=== PATIENT | female | born 1945 | race Caucasian/White ===

== ENCOUNTER → 2023-07-29 | Day surgery (SDC) | payer MEDICARE ==
[2023-07-27 10:18] LABS: BILIRUBIN,URINE NEGATIVE (Neg); CLARITY,URINE CLOUDY (Clear); COLOR,URINE YELLOW (Yellow); GLUCOSE, URINE NEGATIVE (Neg); KETONES,URINE TRACE mg/dl (Neg); LEUKOCYTE ESTERASE ,URINE TRACE (Neg); NITRITES, URINE POSITIVE (Neg); OCCULT BLOOD,URINE NEGATIVE (Neg); PH,URINE 5.5 (4.8-8.0); PROTEIN,URINE NEGATIVE (Neg); UROBILINOGEN,URINE 0.2 E.U/dL (0.2-1.0)
[2023-07-27 10:22] LABS: BASOPHILS % (AUTO) 0.3 % (0-1); EOSINOPHILS # (AUTO) 0.1 X10'3 (0-0.9); EOSINOPHILS % (AUTO) 1.4 % (0-6); LYMPHOCYTES # (AUTO) 1.4 X10'3 (1.1-4.8); LYMPHOCYTES % (AUTO) 19.2 % (21-51); MEAN CORPUSCULAR HEMOGLOBIN 34.7 PG (27.0-31.0); MEAN CORPUSCULAR HGB CONC 33.7 g/dL (33.0-36.5); MONOCYTES # (AUTO) 0.7 X10'3 (0-0.9); NEUTROPHILS # (AUTO) 4.9 X10'3 (1.8-7.7); NEUTROPHILS % (AUTO) 69.1 % (42-75); PRE OP HEMATOCRIT 38.4 % (35.0-45.0); PRE OP HEMOGLOBIN 12.9 g/dL (12.0-16.0); PRE OP PLATELET COUNT 336 X10'3 (140-440); PRE OP WHITE BLOOD COUNT 7.1 10'3 (4.8-10.8); RED BLOOD COUNT 3.72 X10'6 (4.20-5.60); RED CELL DISTRIBUTION WIDTH 14.2 % (11.5-14.5)
[2023-07-27 10:26] LABS: UA COLLECTION TYPE CLN CATCH MIDSTREAM
[2023-07-27 10:27] LABS: BACTERIA,URINE 4+ /HPF (Neg); MUCUS STRANDS FEW /LPF (Neg); SQUAMOUS EPITHELIAL CELL,UR FEW /LPF (FEW); WBC,URINE 30-50 /HPF (0-4)
[2023-07-27 10:28] LABS: TRANSITIONAL EPI CELLS,URINE FEW /HPF
[2023-07-27 11:04] LABS: ALBUMIN 3.4 G/DL (3.4-5.0); ALKALINE PHOSPHATASE 40 IU/L (46-116); BLOOD UREA NITROGEN 18 MG/DL (7-18); BUN/CREATININE RATIO 29.5 (10.0-20.0); CALCIUM 8.6 MG/DL (8.5-10.1); CHLORIDE 102 MMOL/L (99-107); CREATININE 0.61 MG/DL (0.40-0.90); PRE OP ALT 35 U/L (30-65); PRE OP ANION GAP 5 (8-16); PRE OP AST 21 U/L (10-37); PRE OP BILIRUB, TOTAL 0.4 MG/DL (0.0-1.0); PRE OP GLUCOSE 105 MG/DL (70-104); PRE OP SODIUM 137 MMOL/L (135-145); TOTAL CARBON DIOXIDE 30.3 MMOL/L (24-32); TOTAL PROTEIN 6.7 G/DL (6.4-8.2); eGFR > 90 ML/MIN
[~2023-07-29] VITALS: Ht 167.6 cm; Wt 63.5 kg
[~2023-07-29] MED LIST: ACET-1025 PO; ALBU90AE INH; B12; BIOT5TAB PO; BUPIVAcaine/PF 2.5mg/ml (0.25%) 10ml vial ONE; CALCIUM; CETI10CA PO; DENO60DI SUBCUT; FLUT15.87 NS; FOLI1TAB27 PO; GLUCOSAMINE/CHON; IRON; MAG; METH2.5T55 PO; MULT-1085 PO; OLOP5DRO24 EACHEYE; OMEG-166 PO; PRED2.5T4 PO; PREVCR VG; TURMERIC; VIT D3; VITC500T PO; ZINC; [UNRECOGNIZED DRUG - OTHER]; albuterol 2.5 MG/3 ML nebule NEB ONE; bacitracin 15gm ointment TP ONE; cefazolin 2gm/D5W 100mL 100 ML IV ONE; famotidine 20mg tablet PO ONE; ringers solution, lacted 1,000 ML IV SCH
== END | disposition home or self-care (01) ==
LOC: PAS 07:52
PROVIDERS: ATTEND Podiatrist Foot & Ankle Surgery
DX: M20.42 Other hammer toe(s) (acquired), left foot (principal); M19.072 Primary osteoarthritis, left ankle and foot; N39.0 Urinary tract infection, site not specified; Z53.8 Procedure and treatment not carried out for other reasons; Z86.73 Personal history of transient ischemic attack (TIA), and cerebral infarction without residual deficits; Z79.82 Long term (current) use of aspirin; Z79.891 Long term (current) use of opiate analgesic; Z79.899 Other long term (current) drug therapy; Z90.49 Acquired absence of other specified parts of digestive tract; Z90.710 Acquired absence of both cervix and uterus; Z90.89 Acquired absence of other organs; Z96.643 Presence of artificial hip joint, bilateral; Z96.653 Presence of artificial knee joint, bilateral; Z98.890 Other specified postprocedural states
CPT/HCPCS: 36415; 80053; 81001; 85025; 87077; 87088; 87186; 93005; J7120; J0690; J3490

== ENCOUNTER 2023-09-09 05:44 | Day surgery (SDC) | payer MEDICARE ==
[2023-09-06 15:16] LABS: BASOPHILS # (AUTO) 0.1 X10'3 (0-0.2); BASOPHILS % (AUTO) 0.8 % (0-1); BILIRUBIN,URINE NEGATIVE (Neg); CLARITY,URINE CLEAR (Clear); COLOR,URINE YELLOW (Yellow); EOSINOPHILS % (AUTO) 0.5 % (0-6); GLUCOSE, URINE NEGATIVE (Neg); KETONES,URINE NEGATIVE (Neg); LEUKOCYTE ESTERASE ,URINE NEGATIVE (Neg); LYMPHOCYTES # (AUTO) 1.9 X10'3 (1.1-4.8); MEAN CORPUSCULAR HEMOGLOBIN 34.5 PG (27.0-31.0); MEAN CORPUSCULAR HGB CONC 33.7 g/dL (33.0-36.5); MEAN CORPUSCULAR VOLUME 102.4 FL (78-98); MEAN PLATELET VOLUME 7.1 FL (7.4-10.4); MONOCYTES # (AUTO) 0.9 X10'3 (0-0.9); MONOCYTES % (AUTO) 10.3 % (2-12); NEUTROPHILS # (AUTO) 5.5 X10'3 (1.8-7.7); NEUTROPHILS % (AUTO) 65.4 % (42-75); NITRITES, URINE NEGATIVE (Neg); OCCULT BLOOD,URINE NEGATIVE (Neg); PH,URINE 7.5 (4.8-8.0); PRE OP HEMATOCRIT 39.9 % (35.0-45.0); PRE OP HEMOGLOBIN 13.4 g/dL (12.0-16.0); PRE OP PLATELET COUNT 447 X10'3 (140-440); PRE OP WHITE BLOOD COUNT 8.4 10'3 (4.8-10.8); PROTEIN,URINE NEGATIVE (Neg); RED BLOOD COUNT 3.89 X10'6 (4.20-5.60); RED CELL DISTRIBUTION WIDTH 12.8 % (11.5-14.5); UROBILINOGEN,URINE 0.2 E.U/dL (0.2-1.0)
[2023-09-06 15:23] LABS: UA COLLECTION TYPE CLN CATCH MIDSTREAM
[2023-09-06 16:09] LABS: ALBUMIN 3.7 G/DL (3.4-5.0); ALBUMIN/GLOBULIN RATIO 1.1 (1.1-1.5); ALKALINE PHOSPHATASE 45 IU/L (46-116); BLOOD UREA NITROGEN 14 MG/DL (7-18); BUN/CREATININE RATIO 34.1 (10.0-20.0); CALCIUM 9.3 MG/DL (8.5-10.1); CHLORIDE 100 MMOL/L (99-107); CREATININE 0.41 MG/DL (0.40-0.90); PRE OP ALT 49 U/L (30-65); PRE OP ANION GAP 8 (8-16); PRE OP AST 26 U/L (10-37); PRE OP BILIRUB, TOTAL 0.3 MG/DL (0.0-1.0); PRE OP GLUCOSE 101 MG/DL (70-104); PRE OP SODIUM 136 MMOL/L (135-145); TOTAL CARBON DIOXIDE 28.5 MMOL/L (24-32); TOTAL PROTEIN 7.2 G/DL (6.4-8.2); eGFR > 90 ML/MIN
[2023-09-09] VITALS (13 sets, daily range): BP systolic 147–160; BP diastolic 70–99; PULSE 64–86; RESP 12–18; TEMP 98.7; O2SAT 96–100
[~2023-09-09] VITALS: Ht 167.6 cm; Wt 65.0 kg
[~2023-09-09 05:44] MED LIST changes: -BUPIVAcaine/PF 2.5mg/ml (0.25%) 10ml vial ONE; -albuterol 2.5 MG/3 ML nebule NEB ONE; -bacitracin 15gm ointment TP ONE; -cefazolin 2gm/D5W 100mL 100 ML IV ONE; -famotidine 20mg tablet PO ONE; -ringers solution, lacted 1,000 ML IV SCH
[2023-09-09] MEDS: ringers solution, lacted 1,000 ML IV SCH (06:05)
[2023-09-09] MEDS: famotidine 20mg tablet PO ONE (06:06)
[2023-09-09] MEDS: cefazolin 2gm/D5W 100mL 100 ML IV ONE (06:07)
[2023-09-09] MEDS ORDERED: bacitracin 15gm ointment TP ONE (06:29)
[2023-09-09] MEDS ORDERED: BUPIVAcaine 2.5mg/ml inj 50ml vial (contains preservative) ONE (06:30)
[2023-09-09] MEDS ORDERED: sevoflurane 250ml liquid IH ONE (07:09)
[2023-09-09] MEDS ORDERED: cloNIDine hcl/PF 100mcg/ml inj ONE (07:13)
[2023-09-09] MEDS ORDERED: fentaNYL/PF 50MCG/1 ML 2ML syringe ONE (07:15)
[2023-09-09] MEDS ORDERED: midazolam 1 mg/ML 2ml injection ONE (07:19)
[2023-09-09] MEDS ORDERED: ondansetron/PF 4mg/2ml inj IV PRN (07:45)
[2023-09-09] MEDS ORDERED: ringers solution, lacted 1,000 ML IV SCH (07:45)
[2023-09-09] MEDS ORDERED: meperidine/PF 25mg/ml syringe IV PRN ×2 (07:45)
[2023-09-09] MEDS ORDERED: morphine 2 MG/ML inj. syringe IV PRN (07:45)
[2023-09-09] MEDS ORDERED: proCHLORperazine 10 MG/2 ml inj IV PRN (07:45)
[2023-09-09] MEDS ORDERED: morphine 4 MG/ML inj SYRINge IV PRN (07:45)
[2023-09-09] MEDS ORDERED: LIDOcaine 2% (20mg/ml) 5ml vial ONE (08:31)
[2023-09-09] MEDS ORDERED: dexamethasone sod phosphate 4mg/ml inj. ONE (08:31)
[2023-09-09] MEDS ORDERED: propofol inj 20 ML IV ONE ×2 (08:31)
[2023-09-09] MEDS ORDERED: ROPIVAcaine 0.5% (5mg/ml) 30ml vial ONE (08:31)
[2023-09-09] MEDS ORDERED: ondansetron/PF 4mg/2ml inj ONE (08:31)
[2023-09-09] MEDS: acetaminophen 1,000mg/100ml IV 100 ML IV ONE (09:22)
[2023-09-09] MEDS: meperidine/PF 25mg/ml syringe IV PRN (09:23)
== END 2023-09-09 10:30 | disposition home or self-care (01) ==
LOC: PAS 05:44
PROVIDERS: ATTEND Podiatrist Foot & Ankle Surgery
DX: M20.42 Other hammer toe(s) (acquired), left foot (principal); M25.375 Other instability, left foot; G89.18 Other acute postprocedural pain; M06.9 Rheumatoid arthritis, unspecified; Z79.899 Other long term (current) drug therapy; Z90.49 Acquired absence of other specified parts of digestive tract; Z90.710 Acquired absence of both cervix and uterus; Z90.89 Acquired absence of other organs; Z96.643 Presence of artificial hip joint, bilateral; Z96.653 Presence of artificial knee joint, bilateral; Z98.890 Other specified postprocedural states
CPT/HCPCS: 28112; 28285; 28750; 36415; 64450; 73620; 80053; 81003; 82948; 85025; A6223; C1713; J0131; J0690; J0735; J1100; J2175; J2250; J2405; J2704; J2795; J3010; J3490; J7030; J7120; Z7506; Z7508; Z7512; 76000; A4215; A4618; A6449; A7000